=== PATIENT | female | born 1990 | race Caucasian/White ===

== ENCOUNTER 2023-07-12 21:17 | Emergency (ER) | payer OTHER, SELFPAY ==
[2023-07-12 22:48] LABS: Bacteria/HPF 2+ HPF (None Seen); Bilirubin Negative (Negative); Blood, Urine 1+ (Negative); CAUTI Indications for Culture Dysuria,urgency,freq; Clarity Turbid (Clear); Glucose, Urine (Dipstick) Normal (Negative); Ketone, Urine Negative (Negative); Leukocyte 500 Leu/uL (Negative); Nitrite Negative (Negative); Protein, Urine (Dipstick) 30 mg/dL (Neg-Trace); Transitional Epithelial 0-3 HPF (None Seen); Urine Culture Reflex Yes Yes; WBC/HPF Greater than 50 HPF (0-3); pH, Urine 6.5 (5.0-9.0)
[2023-07-13] MEDS ORDERED: Cephalexin 250 MG CAP ONE
== END 2023-07-12 23:36 | disposition home or self-care (01) ==
LOC: ERS 21:17
DX: N39.0 Urinary tract infection, site not specified (principal)
CPT/HCPCS: 81001; 87077; 87086; 87186; 99283

== ENCOUNTER 2023-11-29 21:03 | Emergency (ER) | payer SELFPAY ==
[2023-11-29] MEDS ORDERED: Ibuprofen 200 MG TAB ONE (21:38)
[2023-11-29 22:29] LABS: Influenza A by NAA Not Detected (NotDetected); Influenza B by NAA Not Detected (NotDetected); SARS-CoV-2 NAA Rapid Test Not Detected (NotDetected)
[2023-11-29] MEDS ORDERED: predniSONE 20 MG TAB ONE (22:38)
== END 2023-11-29 22:42 | disposition home or self-care (01) ==
LOC: ERS 21:03
DX: M25.531 Pain in right wrist (principal); M25.561 Pain in right knee; M25.521 Pain in right elbow; F17.210 Nicotine dependence, cigarettes, uncomplicated
CPT/HCPCS: 71045; J7512